=== PATIENT | female | born 1995 | race Caucasian/White ===

== ENCOUNTER 2018-01-11 21:48 | Outpatient (CLI) | payer OTHER ==
[~2018-01-11] VITALS: Ht 160 cm; Wt 81.8 kg
[2018-01-11 22:09] VITALS: BP 138/82; PULSE 87; TEMP 98.2
[2018-01-11 22:16] LABS: COLLECTION METHOD CLEAN CATCH
[2018-01-11] MEDS ORDERED: PRENATAL1 TA7 (22:16)
[2018-01-11] MEDS ORDERED: ZOFRAN8 MG PO (22:17)
[2018-01-11] MEDS ORDERED: DICLEGIS (22:17)
[2018-01-11 22:19] LABS: BASO % 0.2 % (0.0-2.0); EOS # 0.1 (0.0-0.7); EOS % 0.7 % (0-4.0); GRAN # 8.3 (1.4-6.5); HEMATOCRIT 37.3 % (37.0-47.0); HEMOGLOBIN 12.5 g/dl (12.5-16.0); LYMPH # 2.1 (1.2-3.4); LYMPH % 17.7 % (20.0-51.0); MEAN CELL VOLUME 91 fl (80.0-100.0); MEAN CORPUSCULAR HEMOGLOBIN 30 pg (27.0-31.0); MEAN CORPUSCULAR HGB CONC 34 g/dl (33.0-37.0); MEAN PLATELET VOLUME 9.7 fl (7.4-10.4); MONO # 1.1 (0.1-0.6); MONO % 9.1 % (1.7-9.3); PLATELET COUNT 224 K/mm3 (130-400); RED BLOOD COUNT 4.11 M/mm3 (4.10-5.30); REDCELL DISTRIBUTION WIDTH-CV 12.4 % (11.5-14.5)
[2018-01-11 22:23] LABS: MUCOUS Present /lpf; PH 6 (5-8); SQUAMOUS EPITHELIAL 0-2 /hpf; URINE APPEARANCE Clear; URINE BACTERIA Rare /hpf; URINE BILIRUBIN Negative (NEGATIVE); URINE BLOOD Negative (NEGATIVE); URINE COLOR Yellow; URINE GLUCOSE Negative (NEGATIVE); URINE KETONE Negative (NEGATIVE); URINE LEUKOCYTE ESTERASE Trace (NEGATIVE); URINE NITRATE Negative (NEGATIVE); URINE PROTEIN(semi-quant) Negative (NEGATIVE); URINE RBC 0-2 /hpf; URINE UROBILINOGEN Negative (NEGATIVE); URINE WBC 0-2 /hpf
[2018-01-11 22:30] VITALS: BP 116/67
[2018-01-11 22:30] LABS: ALBUMIN 3.4 gm/dL (3.5-5.0); BILIRUBIN,TOTAL 0.2 mg/dL (0.0-1.0); CALCIUM 8.4 mg/dL (8.4-10.2); CREATININE, serum 0.57 mg/dL (0.52-1.25); POTASSIUM 3.9 mmol/L (3.4-5.0); TOTAL PROTEIN 6.6 gm/dL (6.4-8.2)
== END 2018-01-11 22:45 | disposition home or self-care (01) ==
LOC: LDRO 21:48
PROVIDERS: Obstetrics & Gynecology
DX: O99.413 Diseases of the circulatory system complicating pregnancy, third trimester (principal); R03.0 Elevated blood-pressure reading, without diagnosis of hypertension; Z3A.36 36 weeks gestation of pregnancy

== ENCOUNTER 2018-01-22 15:51 | Outpatient (CLI) | payer OTHER ==
[~2018-01-22] VITALS: Ht 162.6 cm; Wt 86.8 kg
[~2018-01-22 15:51] MED LIST: DICLEGIS; PRENATAL1 TA7; ZOFRAN8 MG PO
[2018-01-22 16:15] VITALS: BP 138/91; PULSE 77; TEMP 97.8
[2018-01-22 16:59] VITALS: BP 138/91; PULSE 77; TEMP 97.8
[2018-01-22 17:15] VITALS: BP 140/86; PULSE 88
[2018-01-26] MEDS ORDERED: IBU800 M1 PO (17:36)
[2018-01-26] MEDS ORDERED: PERCOCET 325 MG1 TA2 PO (17:37)
== END 2018-01-22 17:30 | disposition home or self-care (01) ==
LOC: LDRO 15:51
DX: Z34.93 Encounter for supervision of normal pregnancy, unspecified, third trimester (principal); Z3A.37 37 weeks gestation of pregnancy

== ENCOUNTER → 2019-06-18 | Outpatient (CLI) | payer OTHER ==
[~2019-06-18] MED LIST changes: +IBU800 M1 PO; +PERCOCET 325 MG1 TA2 PO
== END ==
LOC: COL.RAD 06-15 09:45
DX: E05.00 Thyrotoxicosis with diffuse goiter without thyrotoxic crisis or storm (principal)